=== PATIENT | female | born 1945 | race Caucasian/White ===

== ENCOUNTER 2019-11-08 11:37 | Emergency (ER) | payer OTHER ==
[~2019-11-08] VITALS: Ht 170.2 cm; Wt 90.7 kg
[2019-11-08 12:05] VITALS: Ht 170.2 cm; Wt 90.7 kg
[2019-11-08 14:55] VITALS: BP 137/63
== END 2019-11-08 14:55 | disposition home or self-care (01) ==
LOC: ED 11:37
DX: K52.9 Noninfective gastroenteritis and colitis, unspecified (principal)
CPT/HCPCS: J3490; J7030